=== PATIENT | female | born 1950 | race Caucasian/White ===

== ENCOUNTER 2019-02-12 10:25 | Inpatient (IN) | payer MEDICARE, MEDICAID ==
[~2019-02-12] VITALS: Ht 165.1 cm; Wt 68.9 kg
[2019-02-12] MEDS ORDERED: ONDANSETRON HCL 4MG/2ML INJ IV STA (11:09)
[2019-02-12 12:16] LABS: BASOPHILS % 0.4 % (0.0-2.0); EOSINOPHILS % 0.8 % (0.0-5.0); HEMATOCRIT. 44.1 % (36.0-48.0); HEMOGLOBIN. 15.4 g/dL (12.0-16.0); LYMPHOCYTES % 14.9 % (20.0-50.0); MEAN CORPUSCULAR HEMOGLOBIN 31.9 pg (28.0-32.0); MEAN CORPUSCULAR VOLUME 91.5 fL (81.0-99.0); MEAN PLATELET VOLUME 9.6 fl (7.4-10.4); MONOCYTES % 5.1 % (2.0-8.0); NEUTROPHILS % 78.8 % (40.0-76.0); PLATELET 145 x1000/uL (130-400); RED BLOOD CELL COUNT 4.82 mill/uL (4.2-5.4); RED CELL DISTRIBUTION WIDTH 13.2 % (11.6-14.6)
[2019-02-12 12:20] LABS: CHLORIDE 98 mEq/L (98-107)
[2019-02-12] MEDS ORDERED: SODIUM CHLORIDE 0.9% 500 ML IV ONE (12:41)
[2019-02-12 16:45] VITALS: BP 118/68
[2019-02-12] MEDS ORDERED: GUAIFENESIN 200MG/10ML SUGAR FREE UDC PO PRN (16:45)
[2019-02-12] MEDS ORDERED: MORPHINE SULFATE 2 MG/ML CPJ (NOT FOR IM USE) IV PRN (16:45)
[2019-02-12] MEDS ORDERED: MAGNESIUM/ALUMINUM HYDROXIDE/SIMETHICONE 30ML UDC PO PRN (16:45)
[2019-02-12] MEDS ORDERED: CLONIDINE 0.1MG TABLET PO PRN (16:45)
[2019-02-12 16:51] VITALS: BP 118/68
[2019-02-12 18:00] VITALS: BP 121/70
[2019-02-12] MEDS: PANTOPRAZOLE SODIUM 40 MG/VIAL IV SCH (18:02)
[2019-02-12] MEDS: SODIUM CHLORIDE 0.9% 1,000 ML IV SCH (18:02)
[2019-02-12] MEDS ORDERED: DEXTROSE 50% WATER 50ML SYRINGE IV PRN (20:30)
[2019-02-12 20:56] VITALS: BP 109/59
[2019-02-12] MEDS: BLOOD SUGAR DIAGNOSTIC STRIP TEST SCH (21:17)
[2019-02-12] MEDS: INSULIN LISPRO 100 UNITS/ML SUBCUT SCH (21:17)
[2019-02-13] VITALS: BP 115/61
[2019-02-13] MEDS: LORAZEPAM 2MG/ML CPJ IV PRN ×2 (02:01→22:35)
[2019-02-13 04:00] VITALS: BP 129/73
[2019-02-13] MEDS: ACETAMINOPHEN 325MG TABLET PO PRN (05:06)
[2019-02-13] MEDS: SODIUM CHLORIDE 0.9% 1,000 ML IV SCH ×2 (06:01→19:03)
[2019-02-13] MEDS: BLOOD SUGAR DIAGNOSTIC STRIP TEST SCH ×4 (06:07→21:00)
[2019-02-13] MEDS: INSULIN LISPRO 100 UNITS/ML SUBCUT SCH ×4 (06:52→23:10)
[2019-02-13 08:00] VITALS: BP 115/64
[2019-02-13] MEDS: PANTOPRAZOLE SODIUM 40 MG/VIAL IV SCH ×2 (09:30→09:32)
[2019-02-13] MEDS ORDERED: METF500T3 PO (09:37)
[2019-02-13] MEDS ORDERED: AMLO-287 PO (09:38)
[2019-02-13 12:00] VITALS: BP 160/90
[2019-02-13] MEDS ORDERED: MELA10CA MT (12:44)
[2019-02-13] MEDS ORDERED: TRAZ-213 MT (12:45)
[2019-02-13 13:20] LABS: BASOPHILS % 0.5 % (0.0-2.0); EOSINOPHILS % 1.8 % (0.0-5.0); HEMATOCRIT. 40.7 % (36.0-48.0); HEMOGLOBIN. 14.3 g/dL (12.0-16.0); LYMPHOCYTES % 26.1 % (20.0-50.0); MEAN CORPUSCULAR HEMOGLOBIN 31.9 pg (28.0-32.0); MEAN CORPUSCULAR VOLUME 90.8 fL (81.0-99.0); MEAN PLATELET VOLUME 9.7 fl (7.4-10.4); MONOCYTES % 8.4 % (2.0-8.0); NEUTROPHILS % 63.2 % (40.0-76.0); PLATELET 145 x1000/uL (130-400); RED BLOOD CELL COUNT 4.49 mill/uL (4.2-5.4); RED CELL DISTRIBUTION WIDTH 13.3 % (11.6-14.6)
[2019-02-13 13:34] LABS: CHLORIDE 106 mEq/L (98-107)
[2019-02-13 16:00] VITALS: BP 134/73
[2019-02-13] MEDS: METFORMIN HCL 500MG TABLET PO SCH (17:44)
[2019-02-13 20:00] VITALS: BP 142/66
[2019-02-13] MEDS: TRAZODONE HCL 50MG TABLET PO SCH (22:43)
[2019-02-13] MEDS: AMLODIPINE 5MG TABLET PO SCH (22:55)
[2019-02-13] MEDS: ONDANSETRON HCL 4MG/2ML INJ IV PRN (22:56)
[2019-02-14] VITALS (7 sets, daily range): BP systolic 123–143; BP diastolic 65–76
[2019-02-14] MEDS: BLOOD SUGAR DIAGNOSTIC STRIP TEST SCH ×4 (06:17→20:23)
[2019-02-14] MEDS: INSULIN LISPRO 100 UNITS/ML SUBCUT SCH ×4 (06:29→21:13)
[2019-02-14] MEDS: METFORMIN HCL 500MG TABLET PO SCH ×2 (06:31→18:09)
[2019-02-14] MEDS: AMLODIPINE 5MG TABLET PO SCH ×2 (11:40→20:18)
[2019-02-14] MEDS: ACETAMINOPHEN 325MG TABLET PO PRN (13:13)
[2019-02-14] MEDS: SODIUM CHLORIDE 0.9% 1,000 ML IV SCH ×2 (13:35→21:13)
[2019-02-14] MEDS: NYSTATIN POWDER 15GM TOP SCH ×2 (18:12→23:00)
[2019-02-14] MEDS: TRAZODONE HCL 50MG TABLET PO SCH (20:18)
[2019-02-14] MEDS: FAMOTIDINE 20MG TABLET PO SCH (20:19)
[2019-02-14] MEDS: ZOLPIDEM TARTRATE 5MG TABLET PO PRN (22:46)
[2019-02-14] MEDS: LORAZEPAM 2MG/ML CPJ IV PRN (22:57)
[2019-02-15] VITALS: BP 132/59
[2019-02-15 04:00] VITALS: BP 135/69
[2019-02-15] MEDS: BLOOD SUGAR DIAGNOSTIC STRIP TEST SCH ×4 (06:06→20:46)
[2019-02-15] MEDS: INSULIN LISPRO 100 UNITS/ML SUBCUT SCH ×4 (06:10→20:57)
[2019-02-15 08:00] VITALS: BP 150/84
[2019-02-15] MEDS: NYSTATIN POWDER 15GM TOP SCH ×2 (09:47→21:00)
[2019-02-15] MEDS: METFORMIN HCL 500MG TABLET PO SCH ×2 (09:47→17:21)
[2019-02-15] MEDS: FAMOTIDINE 20MG TABLET PO SCH ×2 (09:47→20:46)
[2019-02-15] MEDS: AMLODIPINE 5MG TABLET PO SCH ×2 (09:47→20:46)
[2019-02-15] MEDS: SODIUM CHLORIDE 0.9% 1,000 ML IV SCH (11:21)
[2019-02-15 12:00] VITALS: BP 135/78
[2019-02-15 16:00] VITALS: BP 144/85
[2019-02-15] MEDS: ONDANSETRON HCL 4MG/2ML INJ IV PRN ×2 (17:20→22:06)
[2019-02-15 20:00] VITALS: BP 147/83
[2019-02-15] MEDS: TRAZODONE HCL 50MG TABLET PO SCH (20:46)
[2019-02-15] MEDS: LORAZEPAM 2MG/ML CPJ IV PRN (22:07)
[2019-02-15] MEDS: ACETAMINOPHEN 325MG TABLET PO PRN (23:42)
[2019-02-15] MEDS: ZOLPIDEM TARTRATE 5MG TABLET PO PRN (23:43)
[2019-02-16] VITALS: BP 140/74
[2019-02-16] MEDS: SODIUM CHLORIDE 0.9% 1,000 ML IV SCH ×2 (00:41→14:01)
[2019-02-16 04:00] VITALS: BP 120/84
[2019-02-16] MEDS: BLOOD SUGAR DIAGNOSTIC STRIP TEST SCH ×4 (06:30→22:07)
[2019-02-16] MEDS: METFORMIN HCL 500MG TABLET PO SCH ×2 (06:34→17:41)
[2019-02-16] MEDS: INSULIN LISPRO 100 UNITS/ML SUBCUT SCH ×4 (06:36→22:52)
[2019-02-16] MEDS: FAMOTIDINE 20MG TABLET PO SCH ×2 (09:00→21:50)
[2019-02-16] MEDS: NYSTATIN POWDER 15GM TOP SCH ×2 (10:01→22:10)
[2019-02-16] MEDS: AMLODIPINE 5MG TABLET PO SCH ×2 (10:01→21:53)
[2019-02-16 12:00] VITALS: BP 145/88
[2019-02-16] MEDS: ONDANSETRON HCL 4MG/2ML INJ IV PRN ×3 (12:15→21:49)
[2019-02-16] MEDS: ACETAMINOPHEN 325MG TABLET PO PRN (12:15)
[2019-02-16] MEDS ORDERED: CLON2TAB11 PO (14:25)
[2019-02-16 16:00] VITALS: BP 144/83
[2019-02-16 20:00] VITALS: BP 143/77
[2019-02-16] MEDS: CLONAZEPAM 1MG TABLET PO SCH (21:50)
[2019-02-16] MEDS: TRAZODONE HCL 50MG TABLET PO SCH (21:50)
[2019-02-17] VITALS: BP 144/75
[2019-02-17] MEDS: SODIUM CHLORIDE 0.9% 1,000 ML IV SCH ×2 (03:21→16:41)
[2019-02-17 04:00] VITALS: BP 122/70
[2019-02-17] MEDS: BLOOD SUGAR DIAGNOSTIC STRIP TEST SCH ×4 (06:31→21:32)
[2019-02-17] MEDS: INSULIN LISPRO 100 UNITS/ML SUBCUT SCH ×4 (06:35→21:00)
[2019-02-17 08:00] VITALS: BP 118/68
[2019-02-17] MEDS ORDERED: TUBERCULIN,PURIF.PROT.DERIV. 5 TU/0.1 ML SYR ID ONE (09:00)
[2019-02-17] MEDS: FAMOTIDINE 20MG TABLET PO SCH ×2 (10:27→21:20)
[2019-02-17] MEDS: NYSTATIN POWDER 15GM TOP SCH ×2 (10:27→21:34)
[2019-02-17] MEDS: METFORMIN HCL 500MG TABLET PO SCH ×2 (10:27→17:32)
[2019-02-17] MEDS: AMLODIPINE 5MG TABLET PO SCH ×2 (10:27→21:20)
[2019-02-17 11:59] VITALS: BP 118/65
[2019-02-17 16:00] VITALS: BP 122/76
[2019-02-17] MEDS: ACETAMINOPHEN 325MG TABLET PO PRN (17:33)
[2019-02-17 20:00] VITALS: BP 121/67
[2019-02-17] MEDS: CLONAZEPAM 1MG TABLET PO SCH (21:19)
[2019-02-17] MEDS: TRAZODONE HCL 50MG TABLET PO SCH (21:20)
[2019-02-17] MEDS: ONDANSETRON HCL 4MG/2ML INJ IV PRN (21:21)
[2019-02-18] VITALS: BP 109/60
[2019-02-18 04:00] VITALS: BP 125/75
[2019-02-18] MEDS: SODIUM CHLORIDE 0.9% 1,000 ML IV SCH (06:01)
[2019-02-18] MEDS: BLOOD SUGAR DIAGNOSTIC STRIP TEST SCH ×2 (07:21→12:10)
[2019-02-18] MEDS: INSULIN LISPRO 100 UNITS/ML SUBCUT SCH ×2 (07:36→13:50)
[2019-02-18 08:00] VITALS: BP 125/54
[2019-02-18] MEDS: NYSTATIN POWDER 15GM TOP SCH (09:07)
[2019-02-18] MEDS: METFORMIN HCL 500MG TABLET PO SCH (09:09)
[2019-02-18] MEDS: AMLODIPINE 5MG TABLET PO SCH (09:09)
[2019-02-18] MEDS: FAMOTIDINE 20MG TABLET PO SCH (09:09)
[2019-02-18 12:00] VITALS: BP 128/65
[2019-02-18 16:06] VITALS: BP 128/68
== END 2019-02-18 17:00 | disposition home or self-care (01) | DRG 638 ==
LOC: ER 11:22 → 8WST 14:40 → ENRESERV 15:59
PROVIDERS: ADMIT Hospitalist; ATTEND Hospitalist
DX: E11.65 Type 2 diabetes mellitus with hyperglycemia (principal); I50.42 Chronic combined systolic (congestive) and diastolic (congestive) heart failure; E87.1 Hypo-osmolality and hyponatremia; R11.10 Vomiting, unspecified; R00.2 Palpitations; F41.9 Anxiety disorder, unspecified
CPT/HCPCS: 36415; 71045; 82962; 83880; 84484; 90585; 93005; 93970; 97162; 99285; C1893; C9113; J1815; J2060; J2405; J7030

== ENCOUNTER 2019-02-18 20:54 | Emergency (ER) | payer MEDICARE, MEDICAID ==
[~2019-02-18] VITALS: Ht 154.9 cm; Wt 64.0 kg
[~2019-02-18 20:54] MED LIST: AMLO-287 PO; CLON2TAB11 PO; MELA10CA MT; METF500T3 PO; TRAZ-213 MT
[2019-02-18 23:06] LABS: CHLORIDE 104 mEq/L (98-107)
[2019-02-18 23:07] LABS: BASOPHILS % 0.7 % (0.0-2.0); EOSINOPHILS % 2.1 % (0.0-5.0); HEMATOCRIT. 42.7 % (36.0-48.0); HEMOGLOBIN. 14.8 g/dL (12.0-16.0); LYMPHOCYTES % 20.6 % (20.0-50.0); MEAN CORPUSCULAR HEMOGLOBIN 31.8 pg (28.0-32.0); MEAN CORPUSCULAR VOLUME 91.9 fL (81.0-99.0); MEAN PLATELET VOLUME 9.1 fl (7.4-10.4); MONOCYTES % 6.7 % (2.0-8.0); NEUTROPHILS % 69.9 % (40.0-76.0); PLATELET 208 x1000/uL (130-400); RED BLOOD CELL COUNT 4.65 mill/uL (4.2-5.4); RED CELL DISTRIBUTION WIDTH 13.8 % (11.6-14.6)
[2019-02-18 23:12] LABS: ETHANOL BLOOD < 10 mg/dL
[2019-02-19 00:53] LABS: *AMPHETAMINES SCREEN URINE NEGATIVE (NEGATIVE); *BARBITURATES SCREEN URINE NEGATIVE (NEGATIVE); *BENZODIAZEPINES SCREEN URINE NEGATIVE (NEGATIVE); *COCAINE SCREEN URINE NEGATIVE (NEGATIVE)
[2019-02-19 00:54] LABS: CANNABINOID URINE SCREEN NEGATIVE (NEGATIVE); METHADONE URINE SCREEN NEGATIVE (NEGATIVE); OPIATES URINE SCREEN NEGATIVE (NEGATIVE); PHENCYCLIDINE URINE SCREEN NEGATIVE (NEGATIVE)
[2019-02-19 05:24] VITALS: BP 142/86
== END 2019-02-19 05:25 | disposition home or self-care (01) ==
LOC: ER 20:54
DX: F41.9 Anxiety disorder, unspecified (principal); R00.2 Palpitations; I11.0 Hypertensive heart disease with heart failure; I50.9 Heart failure, unspecified; E11.9 Type 2 diabetes mellitus without complications; F17.200 Nicotine dependence, unspecified, uncomplicated; Z90.49 Acquired absence of other specified parts of digestive tract; Z79.899 Other long term (current) drug therapy; Z79.84 Long term (current) use of oral hypoglycemic drugs
CPT/HCPCS: 36415; 71045; 80305; 80320; 83880; 84443; 84484; 93005; 99284; G0480

== ENCOUNTER 2021-05-24 17:18 | Emergency (ER) | payer MEDICAID, MEDICARE ==
[~2021-05-24] VITALS: Ht 157.5 cm; Wt 60.0 kg
[~2021-05-24 17:18] MED LIST changes: -TRAZ-213 MT; +TRAZ-252 MT
[2021-05-25 00:04] LABS: BASOPHILS % 0.6 % (0.0-2.0); EOSINOPHILS % 1.1 % (0.0-5.0); HEMATOCRIT. 46.1 % (36.0-48.0); HEMOGLOBIN. 16.2 g/dL (12.0-16.0); LYMPHOCYTES % 24.5 % (20.0-50.0); MEAN CORPUSCULAR HEMOGLOBIN 31.6 pg (28.0-32.0); MEAN CORPUSCULAR VOLUME 89.8 fL (81.0-99.0); MEAN PLATELET VOLUME 9.5 fl (7.4-10.4); MONOCYTES % 6.9 % (2.0-8.0); NEUTROPHILS % 66.9 % (40.0-76.0); PLATELET 184 x1000/uL (130-400); RED BLOOD CELL COUNT 5.13 mill/uL (4.2-5.4); RED CELL DISTRIBUTION WIDTH 12.6 % (11.6-14.6)
[2021-05-25 00:10] LABS: CHLORIDE 103 mEq/L (98-107)
[2021-05-25] MEDS ORDERED: INSULIN REGULAR (HUMULIN R) 300UNITS/3ML VIAL SUBCUT ONE (01:00)
[2021-05-25] MEDS ORDERED: METF-416 MT (01:05)
[2021-05-25 09:16] VITALS: BP 142/90
== END 2021-05-25 01:02 | disposition home or self-care (01) ==
LOC: ER 17:18
DX: E11.65 Type 2 diabetes mellitus with hyperglycemia (principal); R53.1 Weakness; R42 Dizziness and giddiness; I11.0 Hypertensive heart disease with heart failure; I50.9 Heart failure, unspecified
CPT/HCPCS: 36415; 80053; 85025; 93005; 96372; 99284; J1815